=== PATIENT | female | born 1945 | race Caucasian/White ===

== ENCOUNTER 2018-10-19 08:22 | Outpatient (CLI) | payer SELFPAY, MEDICARE | END 2018-10-19 08:23 | disposition home or self-care (01) | LOC: LAB 08:22 ==

== ENCOUNTER 2018-10-24 10:38 | Outpatient (CLI) | payer SELFPAY | END 2018-10-24 10:39 | disposition home or self-care (01) | LOC: RAD 10:38 ==

== ENCOUNTER 2018-11-06 12:47 | Inpatient (IN) | payer MEDICARE, SELFPAY ==
[2018-11-06 14:09] VITALS: BMI 25.5
--- NOTE | 2018-11-06 16:33 | ED PDOC ---
Arrival/HPI - General Chief Complaint: Shortness Of Breath Time Seen by Provider: 11/06/18 15:26 Historian: Patient - History of Present Illness Narrative History of Present Illness (Text): 11/06/18 16:34 73 yo F w/ PMH of DM and high cholesterol complains of difficulty taking deep breathe, lower abdominal pain, low back pain and L hip pain radiating to the rest of the L leg x 3 days which started after taking cipro, states that she stopped taking cipro yesterday. States that she saw her pmd today regarding her symptoms and was advised to go to the ER for evaluation to have diagnostic tests done. Patient has a copy of a diagnostic order which includes CTA of chest, CT A/P, XR L spine, sacrum & coccyx, and US doppler of b/l LE. Otherwise: (-) nausea / vomiting, (-) diarrhea, (+) dysuria, (-) fever, (-) melena, (-) hemat ochezia. PMD Sofya Past Medical History - Infectious Disease Hx of Infectious Diseases: None - Endocrine/Metabolic Hx Diabetes Mellitus Type 2: Yes - Psychiatric Hx Substance Use: No - Surgical History Hx Cholecystectomy: Yes Family/Social History Family/Social History: No Known Family HX Smoking Status: Never Smoked Hx Alcohol Use: No Hx Substance Use: No Allergies/Home Meds Allergies/Adverse Reactions: Allergies aspirin Allergy (Verified 11/06/18 14:09) RASH Penicillins Allergy (Verified 11/06/18 14:09) RASH Home Medications: Home Meds Medication Instructions Recorded Confirmed Alendronate [Fosamax] 1 tab PO Q7D 11/06/18 11/06/18 GlipiZIDE [Glucotrol] 1 tab PO BID 11/06/18 11/06/18 Rosuvastatin Calcium [Crestor] 1 tab PO DAILY 11/06/18 11/06/18 Review of Systems - Review of Systems Constitutional: absent: Fatigue, Fevers Respiratory: absent: SOB, Cough Cardiovascular: absent: Chest Pain, Palpitations Gastrointestinal: Abdominal Pain. absent: Diarrhea, Nausea, Vomiting Genitourinary Female: absent: Dysuria, Frequency, Hematuria Musculoskeletal: Arthralgias, Back Pain. absent: Neck Pain Skin: absent: Rash, Skin Lesions Neurological: absent: Headache, Dizziness Physical Exam Vital Signs Temp Pulse Resp BP Pulse Ox 11/06/18 14:14 98.7 F 76 18 106/60 95 Temperature: Afebrile Blood Pressure: Normal Pulse: Regular Respiratory Rate: Normal Appearance: Positive for: Well-Appearing, Non-Toxic, Comfortable Pain Distress: None Mental Status: Positive for: Alert and Oriented X 3 - Systems Exam Head: Present: Atraumatic, Normocephalic Pupils: Present: PERRL Extroacular Muscles: Present: EOMI Conjunctiva: Present: Normal Mouth: Present: Moist Mucous Membranes Neck: Present: Normal Range of Motion Respiratory/Chest: Present: Clear to Auscultation, Good Air Exchange. No: Respiratory Distress, Accessory Muscle Use Cardiovascular: Present: Regular Rate and Rhythm, Normal S1, S2. No: Murmurs Abdomen: No: Tenderness, Distention, Peritoneal Signs Back: Present: Normal Inspection Upper Extremity: Present: Normal Inspection. No: Cyanosis, Edema Lower Extremity: Present: Normal Inspection, Tenderness (+mild tenderness to the L hip with limited ROM secondary to pain). No: Edema Neurological: Present: GCS=15, CN II-XII Intact, Speech Normal, Motor Func Grossly Intact, Normal Sensory Function Skin: Present: Warm, Dry, Normal Color. No: Rashes Psychiatric: Present: Alert, Oriented x 3, Normal Insight, Normal Concentration Medical Decision Making ED Course and Treatment: 11/06/18 16:29 Plan: -- Labs -- IV -- Urinalysis -- EKG -- CXR -- XR L spine -- XR sacrum & coccyx -- Reassess and disposition -- CT AP w/ po contrast -- CTA chest 11/06/18 18:16 Patient is refusing any analgesics at this time. EKG : SR at 89 bpm, no acute ST changes. US doppler b/l LE : no DVT. CXR : NAD, as read by PA XR L spine, sacrum & coccyx: no fracture, as read by PA XR L hip / pelvis: no fracture, no dislocation, as read by PA Labs reviewed : wbc nl, trop neg, bnp nl, UA +UTI. 11/06/18 21:15 CTA Chest with Intravenous Contrast for Pulmonary Embolism CLINICAL HISTORY: PAIN TECHNIQUE: Axial CTA images of the chest with intravenous contrast using a pulmonary embolism protocol. Reconstructed images were created and reviewed. 309.32 mGy-cm CONTRAST: With; VISIPAQUE 320 100ML was administered without incident. COMPARISON: None provided. FINDINGS: PULMONARY ARTERIES No evidence of central or segmental pulmonary embolism is seen. AORTA There is no evidence for aneurysm or dissection of the thoracic aorta. LUNGS Scattered bilateral groundglass opacities, nonspecific, may be due to an atypical infection versus inflammatory condition such as hypersensitivity pneumonitis. PLEURAL SPACES No pneumothorax evident. No pleural effusions. HEART Heart size is within normal limits. No significant pericardial effusion. LYMPH NODES No bulky lymphadenopathy is evident. Mild non-specific bilateral hilar adenopathy possibly reactive. BONES No focal osseous abnormality or acute fracture. IMPRESSION: Scattered bilateral groundglass opacities, nonspecific, may be due to an atypical infection versus inflammatory condition such as hypersensitivity pneumonitis. Mild non-specific bilateral hilar adenopathy possibly reactive. Unremarkable pulmonary embolism protocol CTA of the chest otherwise. 11/06/18 21:15 CT Abdomen and Pelvis without IV contrast CLINICAL HISTORY: PAIN TECHNIQUE: Axial computed tomography images of the abdomen and pelvis without intravenous contrast. CONTRAST: Without intravenous contrast. COMPARISON: None provided. FINDINGS: LUNG BASES: The lung bases appear clear. No pleural effusions are seen. LIVER: Unremarkable. GALLBLADDER AND BILE DUCTS: Status post cholecystectomy. No biliary ductal dilatation is evident. PANCREAS: Unremarkable. SPLEEN: Unremarkable. ADRENAL GLANDS: Unremarkable. KIDNEYS, URETERS, AND BLADDER: The kidneys appear within normal limits. There is no hydronephrosis or hydroureter. No urinary calculi are seen. STOMACH AND BOWEL: A small hiatal hernia is identified. Unremarkable appearance of the stomach. No evidence of bowel obstruction. The mucosal ramsey of the ileum are thickened measuring 3.4 mm transversely in the terminal portion. This is thought indicative of enteritis. Inflammatory or infectious etiologies are thought most likely. There is no definite evidence to suggest colitis. APPENDIX: No evidence of acute appendicitis on CT examination. PERITONEUM: No free fluid. No free air. LYMPH NODES: No lymphadenopathy is evident. REPRODUCTIVE: Unremarkable as visualized. VASCULATURE: No evidence of abdominal aortic aneurysm. Mild-moderate atherosclerotic vascular plaquing is present. BONES: No aggressive appearing osseous lesion. No acute osseous pathology evident. IMPRESSION: 1. Small hiatal hernia. 2. Ileitis; most pronounced in the terminal region. 3. Status post cholecystectomy. 4. Mild-moderate atherosclerotic vascular plaquing. Results d/w Dr. Cowart, request observation under the hospitalist service. On reevaluation, patient laying in bed comfortably. Reports no CP or SOB at this time. On exam, patient remains awake alert and oriented 3 in no acute distre ss. Diagnostic results d/w the patient. Patient states that she has a severe pcn allergy and develops rash, swelling and dyspnea when taking pcn. Doxycycline IV ordered. Case d/w medical office asst and Dr. Meyers, they agree with plan for observation under the hospitalist service. - RAD Interpretation Radiology Orders: 11/06/18 16:07 HIP MIN 2V W/ PELVIS LT [RAD] Stat LS SPINE WITH OBL > 18 YRS OLD [RAD] Stat 11/06/18 16:08 ABD & PELVIS PO CONTRAST ONLY [CT] Stat ANGIO CHEST PE PROTOCOL [CT] Stat SACRUM &/or COCCYX (MIN 2VW) [RAD] Stat DUPLEX LOWER EXTRM VEIN BILAT [US] Stat 11/06/18 16:17 CHEST ONE VIEW [RAD] Stat - PA / [employer] MANAGER / Resident Statement MD/DO has reviewed & agrees with the documentation as recorded. Disposition/Present on Arrival - Present on Arrival Any Indicators Present on Arrival: No History of DVT/PE: No History of Uncontrolled Diabetes: No Urinary Catheter: No History of Decub. Ulcer: No History Surgical Site Infection Following: None - Disposition Have Diagnosis and Disposition been Completed?: Yes Diagnosis: Pneumonitis, Ileitis, UTI (urinary tract infection) Disposition: HOSPITALIZED Disposition Time: 22:00 Patient Plan: Observation Condition: STABLE
[2018-11-06] MEDS ORDERED: Iohexol 240 (50 ml) ONE (17:09)
[2018-11-06] MEDS ORDERED: Iodixanol 320 MG/ML 100 ML BOTTLE IV ONE (17:10)
[2018-11-06 17:36] LABS: BASO # 0.04 K/mm3 (0.0-2.0); BASO % 0.5 % (0.0-3.0); EOS # 0.2 (0.0-0.7); EOS % 1.9 % (1.5-5.0); HEMOGLOBIN 12.9 g/dL (12.0-16.0); LYMPH # 2.2 (1.2-3.4); LYMPH % 26.4 % (22.0-35.0); MEAN CELL VOLUME 65.7 fl (80.0-105.0); MEAN CORPUSCULAR HEMOGLOBIN 21.4 pg (25.0-35.0); MEAN CORPUSCULAR HGB CONC 32.5 g/dl (31.0-37.0); MEAN PLATELET VOLUME 9.1 fl (7.0-11.0); MONO # 0.7 (0.1-0.6); MONO % 8.7 % (1.0-6.0); RBC 6.04 10^6/uL (3.5-6.1); RED CELL DISTRIBUTION WIDTH 15.7 % (11.5-14.5); WHITE BLOOD COUNT 8.2 10^3/uL (4.5-11.0)
[2018-11-06 17:57] LABS: ALB/GLOB RATIO 1.1 (1.1-1.8); ALBUMIN 4.3 g/dL (3.0-4.8); ALT/SGPT 39 U/L (7-56); AST/SGOT 26 U/L (14-36); BLOOD UREA NITROGEN 10 mg/dL (7-21); CALCIUM 9.1 mg/dL (8.4-10.5); GFR NON-AFRICAN AMERICAN > 60; LIPASE 225 U/L (23-300)
[2018-11-06 17:58] LABS: INR 1.01; PARTIAL THROMBOPLASTIN TIME 35.8 Seconds (26.9-38.3); PROTHROMBIN TIME 11.2 SECONDS (9.4-12.5); TROPONIN I < 0.01 ng/mL
--- NOTE | 2018-11-06 18:52 | RAD ---
Date of service: 11/06/2018 PROCEDURE: CHEST RADIOGRAPH, 1 VIEW HISTORY: back pain COMPARISON: None available. FINDINGS: LUNGS: Clear. PLEURA: No pneumothorax or pleural fluid seen. CARDIOVASCULAR: Atherosclerotic calcifications identified primarily aortic arch. No radiographic findings to suggest acute or significant cardiovascular disease. OSSEOUS STRUCTURES: No significant abnormalities. VISUALIZED UPPER ABDOMEN: Normal. OTHER FINDINGS: None. IMPRESSION: No active disease.
--- NOTE | 2018-11-06 20:14 | US ---
HISTORY: Leg pain and swelling. Evaluate for DVT PHYSICIAN(S): Ramy Ring MD. TECHNIQUE: Duplex sonography and color-flow Doppler with graded compression were used to evaluate the deep venous systems of both lower extremities. FINDINGS: The visualized deep venous systems of both lower extremities are sonographically normal and compressible. Normal wave forms and augmentation are seen. There is no sonographic evidence for deep venous thrombosis in the visualized segments of both lower extremities. IMPRESSION: No sonographic evidence for deep venous thrombosis in the visualized segments of both lower extremities.
[2018-11-06 20:41] LABS: PH,URINE 6.5 (4.7-8.0); URINE BILIRUBIN NEGATIVE (NEGATIVE); URINE BLOOD TRACE-LYSED (NEGATIVE); URINE GLUCOSE (UA) NEGATIVE (NEGATIVE); URINE LEUKOCYTE ESTERASE SMALL Leu/uL (NEGATIVE); URINE PROTEIN NEGATIVE mg/dL (<30 mg/dL); URINE UROBILINOGEN 0.2 E.U./dL (<1 E.U./dL)
[2018-11-06 20:42] LABS: URINE APPEARANCE CLEAR (CLEAR); URINE COLOR STRAW (YELLOW)
[2018-11-06] MEDS ORDERED: Dextrose 50% SYRINGE Inj (50 ml) IV PRN (23:29)
[2018-11-06] MEDS ORDERED: Albuterol-Ipratrop 3 mg / 0.5 (3 ml) UD IH PRN (23:30)
--- NOTE | 2018-11-07 00:11 | CP.PCM.HP ---
<Nikolay Conroy - Last Filed: 11/07/18 00:27> History of Present Illness - History of Present Illness History of Present Illness: Medicine History and Physical for Hospitalist Service, Dr. Mira Conroy, DO PGY-1 This is a 73 y o female with PMhx DM2, HLD, and hypertriglyceridemia, who presents to the ED c/o LLQ pain and shortness of breath associated with sharp chest pain that has been present for the past day. States that she was prescribed Cipro by her PMD for treatment of UTI, and also Diflucan x1 for treatment of yeast infection. Pt started taking both medications for 1 day, and then started to have the LLQ pain. Pt described it at being sharp, localized to LLQ with associated radiation of pain that shot down to L hip and rest of L leg. Pt states the shortness of breath also started at around the same time, and stated that it was difficult to take a deep breath in and that the chest pain was localized to the mid-sternum and also in the area of the ribs with radiation to the back. Pt states she got concerned about her symptoms, stopped taking Cipro on her own, and was sent to the ED by her PMD for further evaluation. Pt states that her symptoms have greatly improved since she stopped taking the Cipro. Admits to 2 episodes of watery diarrhea, non-bloody, most recent episode at 7 am on day of admission. Pt states she has been able to tolerate PO diet well since onset of symptoms, was able to eat oatmeal and eggs in the am without issues. States she has been drinking plenty of water. Denies headache, fever, chills, chest pain, sob, n/v/d/c, dysuria, urinary frequency, low back pain, suprapubic pain, foul smelling urine, abnormal vaginal discharge or other symptoms currently. PMhx: DM2, HLD, and hypertriglyceridemia PSurgHx: Cholecystectomy in 2006 Allergies: PCN, ASA (pt states she gets rash and facial flushing with both, questionable angioedema) Home meds: Glipizide 10 mg PO bid, Crestor 20 mg daily, Alendronate 70 mg PO q weekly Fam hx: significant for HTN and HLD Soc hx: denies smoking, EtOH or illicit drug use PMD: Dr. Cowart Present on Admission - Present on Admission Any Indicators Present on Admission: No History of DVT/PE: No History of Uncontrolled Diabetes: No Urinary Catheter: No Decubitus Ulcer Present: No Review of Systems - Constitutional Constitutional: absent: Chills, Fever, Headache, Night Sweats, Weakness - Respiratory Respiratory: Dyspnea. absent: Cough, Wheezing, Chest Congestion, Excessive Mucous Production - Genitourinary Genitourinary: absent: Change in Urinary Stream, Difficulty Urinating, Dysuria, Hematuria, Nocturia - Musculoskeletal Musculoskeletal: Arthralgias, Radiating Pain into Limb. absent: Numbness, Tingling Past Patient History - Infectious Disease Hx of Infectious Diseases: None - Past Social History Smoking Status: Never Smoked - CARDIAC Hx Hypercholesterolemia: Yes - ENDOCRINE/METABOLIC Hx Diabetes Mellitus Type 2: Yes - PSYCHIATRIC Hx Substance Use: No - SURGICAL HISTORY Hx Cholecystectomy: Yes Meds Allergies/Adverse Reactions: Allergies Allergy/AdvReac Type Severity Reaction Status Date / Time aspirin Allergy RASH Verified 11/06/18 14:09 Penicillins Allergy RASH Verified 11/06/18 14:09 Physical Exam - Constitutional Appears: Non-toxic, No Acute Distress - Head Exam Head Exam: ATRAUMATIC, NORMOCEPHALIC - Eye Exam Eye Exam: EOMI, Normal appearance, PERRL - ENT Exam ENT Exam: Mucous Membranes Moist - Neck Exam Neck exam: Positive for: Full Rom, Normal Inspection. Negative for: Tenderness - Respiratory Exam Respiratory Exam: Clear to Auscultation Bilateral, NORMAL BREATHING PATTERN. absent: Rales, Rhonchi, Wheezes - Cardiovascular Exam Cardiovascular Exam: REGULAR RHYTHM, +S1, +S2. absent: Gallop, Rubs, Systolic Murmur - GI/Abdominal Exam GI & Abdominal Exam: Normal Bowel Sounds, Soft, Tenderness. absent: Distended, Guarding, Organomegaly, Rigid Additional comments: Pinpoint tenderness to palpation in LLQ without rebound tenderness or radiation to rest of abd - Extremities Exam Extremities exam: Positive for: full ROM, normal capillary refill, normal inspection, pedal pulses present. Negative for: calf tenderness, joint swelling, pedal edema, tenderness - Neurological Exam Neurological exam: Alert, CN II-XII Intact, Oriented x3, Reflexes Normal - Skin Skin Exam: Dry, Intact, Normal Color, Warm Results - Vital Signs Recent Vital Signs: Last Vital Signs Temp 98.7 F 11/06/18 14:14 Pulse 80 11/07/18 00:07 Resp 18 11/07/18 00:07 BP 150/74 11/07/18 00:07 Pulse Ox 98 11/07/18 00:07 - Labs Result Diagrams: 11/06/18 17:32 11/06/18 17:32 Labs: Laboratory Results - last 24 hr 11/06/18 11/06/18 11/06/18 17:32 17:32 17:32 WBC 8.2 D RBC 6.04 Hgb 12.9 Hct 39.7 MCV 65.7 L MCH 21.4 L MCHC 32.5 RDW 15.7 H Plt Count 305 MPV 9.1 Neut % (Auto) 62.5 Lymph % (Auto) 26.4 [place] % (Auto) 8.7 H Eos % (Auto) 1.9 Baso % (Auto) 0.5 Lymph # (Auto) 2.2 [place] # (Auto) 0.7 H Eos # (Auto) 0.2 Baso # (Auto) 0.04 Absolute Neuts (auto) 5.14 PT 11.2 INR 1.01 APTT 35.8 D-Dimer, Quantitative 324 H Sodium 138 Potassium 4.2 Chloride 104 Carbon Dioxide 23 Anion Gap 15 BUN 10 Creatinine 0.4 L Est GFR ( Amer) > 60 Est GFR (Non-Af Amer) > 60 Random Glucose 142 H Calcium 9.1 Total Bilirubin 0.4 AST 26 ALT 39 Alkaline Phosphatase 80 Troponin I < 0.01 NT-Pro-B Natriuret Pep 40.0 Total Protein 8.3 Albumin 4.3 Globulin 4.0 Albumin/Globulin Ratio 1.1 Lipase 225 Urine Color Urine Appearance Urine pH Ur Specific [place] Urine Protein Urine Glucose (UA) Urine Ketones Urine Blood Urine Nitrate Urine Bilirubin Urine Urobilinogen Ur Leukocyte Esterase Urine RBC Urine WBC Ur Epithelial Cells 11/06/18 20:34 WBC RBC Hgb Hct MCV MCH MCHC RDW Plt Count MPV Neut % (Auto) Lymph % (Auto) [place] % (Auto) Eos % (Auto) Baso % (Auto) Lymph # (Auto) [place] # (Auto) Eos # (Auto) Baso # (Auto) Absolute Neuts (auto) PT INR APTT D-Dimer, Quantitative Sodium Potassium Chloride Carbon Dioxide Anion Gap BUN Creatinine Est GFR ( Amer) Est GFR (Non-Af Amer) Random Glucose Calcium Total Bilirubin AST ALT Alkaline Phosphatase Troponin I NT-Pro-B Natriuret Pep Total Protein Albumin Globulin Albumin/Globulin Ratio Lipase Urine Color Straw Urine Appearance Clear Urine pH 6.5 Ur Specific [place] <= 1.005 Urine Protein Negative Urine Glucose (UA) Negative Urine Ketones Negative Urine Blood Trace-lysed H Urine Nitrate Negative Urine Bilirubin Negative Urine Urobilinogen 0.2 Ur Leukocyte Esterase Small H Urine RBC 5 - 10 H Urine WBC 10 - 15 H Ur Epithelial Cells 6 - 8 H Assessment & Plan - Assessment and Plan (Free Text) Assessment: 73 y o female with PMhx DM2, HLD, and hypertriglyceridemia, who presents to the ED c/o LLQ pain and shortness of breath associated with sharp chest pain that has been present for the past day. Plan: UTI Failure of outpatient tx with Cipro, possible adverse reaction to medication, improved symptoms s/p pt d/c-ing medication Hx PCN allergy S/p Doxycycline x1 in ED No leukocytosis on admission Procal pending U/a on admission: trace blood, small LE, RBCs 5-10, WBCs 10-15 Urine and blood cxs pending ID consulted (Dr. Joiner), recs appreciated Afebrile, vitals stablle, cont to monitor BUN/Cr wnl Shortness of breath Symptoms much improved as per pt s/p d/c-ing Cipro LE doppler U/s neg for DVT CTA neg for PE, VRAD read demonstrates scattered b/l ground-glass opacities, non-specific, may be 2/2 atypical infection vs. inflammatory condition such as hypersensitivity pneumonitis. Mild non-specific b/l hilar adenopathy possibly reactive. Unremarkable otherwise. Duonebs q6h prn S/p Doxycycline x1 in ED BNP wnl D-dimer elevated at 324 Diarrhea Pt reports no further episodes of diarrhea for past [address] abd/pelvis: small hiatal hernia, ileitis most pronounced in terminal region, s/p cholecystectomy, mild-mod atherosclerotic vascular plaquing C diff toxin and Ag pending Stool cx, ova + parasites pending Start Flagyl 500 mg IVPB q8h ID consulted, recs appreciated Cont to monitor bowel function HHD/mod consistent carb Encourage PO hydration L hip/L leg pain Possibly 2/2 adverse reaction to Cipro, sxs improved since d/c-ing anbx XR L-spine, sacrum, coccyx, L hip/pelvis neg for fx/dislocation PT eval ordered Activity: OOB as tolerated Hx DM2 Home med Glipizide held on admission ISS-med Fingersticks achs Hypoglycemic protocol Hx HLD/HTGs C/w home med Crestor PO din DVT/GI ppx: Lovenox/Pepcid Pt seen, examined with, and plan discussed with Dr. Meyers, attending physician. Nikolay Conroy DO PGY-1, [employer] Operator Pager #[phone] <Vee Meyers - Last Filed: 11/10/18 21:04> Results - Vital Signs Recent Vital Signs: Last Vital Signs Temp 98.2 F 11/09/18 14:00 Pulse 91 H 11/09/18 14:00 Resp 18 11/09/18 14:00 BP 142/71 11/09/18 14:00 Pulse Ox 96 11/09/18 14:00 - Labs Result Diagrams: 11/09/18 06:20 11/09/18 06:20 Attending/Attestation - Attestation I have personally seen and examined this patient.: Yes I have fully participated in the care of the patient.: Yes I have reviewed all pertinent clinical information: Yes
[2018-11-07] MEDS: metroNIDAZOLE IV 500 mg/100 ml 500 MG/100 ML BAG IVPB SCH ×4 (01:27→23:34)
[2018-11-07 07:09] LABS: BASO # 0.02 K/mm3 (0.0-2.0); BASO % 0.3 % (0.0-3.0); EOS # 0.2 (0.0-0.7); EOS % 3.1 % (1.5-5.0); HEMOGLOBIN 12.3 g/dL (12.0-16.0); LYMPH # 2.1 (1.2-3.4); LYMPH % 30.2 % (22.0-35.0); MEAN CELL VOLUME 65.4 fl (80.0-105.0); MEAN PLATELET VOLUME 9.7 fl (7.0-11.0); MONO # 0.7 (0.1-0.6); MONO % 10.7 % (1.0-6.0); RBC 5.87 10^6/uL (3.5-6.1); RED CELL DISTRIBUTION WIDTH 15.7 % (11.5-14.5); WHITE BLOOD COUNT 6.8 10^3/uL (4.5-11.0)
[2018-11-07] MEDS: Insulin Lispro (humaLOG) MEDIUM Coverage SC SCH ×4 (07:30→22:00)
[2018-11-07 07:41] LABS: ALB/GLOB RATIO 1.1 (1.1-1.8); ALBUMIN 3.9 g/dL (3.0-4.8); ALT/SGPT 42 U/L (7-56); AST/SGOT 35 U/L (14-36); BLOOD UREA NITROGEN 12 mg/dL (7-21); CALCIUM 8.3 mg/dL (8.4-10.5); GFR NON-AFRICAN AMERICAN > 60
--- NOTE | 2018-11-07 07:57 | CT ---
Date of service: 11/06/2018 PROCEDURE: CT Abdomen and Pelvis without intravenous contrast HISTORY: lower abd pain COMPARISON: None. TECHNIQUE: Technique. Contrast dose: Radiation dose: Total exam DLP = 292.22 mGy-cm. This CT exam was performed using one or more of the following dose reduction techniques: Automated exposure control, adjustment of the mA and/or kV according to patient size, and/or use of iterative reconstruction technique. FINDINGS: LOWER THORAX: Small hiatal hernia. LIVER: Unremarkable. No gross lesion or ductal dilatation. GALLBLADDER AND BILE DUCTS: Cholecystectomy. PANCREAS: Unremarkable. No gross lesion or ductal dilatation. SPLEEN: Unremarkable. ADRENALS: Unremarkable. No mass. KIDNEYS AND URETERS: Unremarkable. No hydronephrosis. No solid mass. VASCULATURE: Unremarkable. No aortic aneurysm. No aortic atherosclerotic calcification or mural plaque present. BOWEL: Unremarkable. No obstruction. No gross mural thickening. APPENDIX: Unremarkable. Normal appendix. PERITONEUM: Unremarkable. No free fluid. No free air. LYMPH NODES: Unremarkable. No enlarged lymph nodes. BLADDER: Unremarkable. REPRODUCTIVE: Unremarkable. BONES: No acute fracture. OTHER FINDINGS: None. IMPRESSION: Small hiatal hernia. Status post cholecystectomy.
--- NOTE | 2018-11-07 08:25 | CT ---
Date of service: 11/06/2018 PROCEDURE: CT Chest with contrast (Pulmonary Angiogram) HISTORY: back pain, dyspnea, r/o PE COMPARISON: None available. TECHNIQUE: Axial computed tomography images were obtained of the chest in the pulmonary arterial phase of enhancement. Coronal and sagittal reformatted images were created and reviewed. Intravenous contrast dose: Radiation dose: Total exam DLP = 309.32 mGy-cm. This CT exam was performed using one or more of the following dose reduction techniques: Automated exposure control, adjustment of the mA and/or kV according to patient size, and/or use of iterative reconstruction technique. FINDINGS: PULMONARY ARTERIES: Unremarkable. No pulmonary embolism. AORTA: No acute findings. No thoracic aortic aneurysm. No aortic atherosclerotic calcification or mural plaque present. LUNGS: Mild bilateral mosaic pattern to the lung parenchyma suggesting an element of air trapping. PLEURAL SPACES: Unremarkable. No effusion or pneumothorax. HEART: Unremarkable. No cardiomegaly. No significant pericardial effusion. LYMPH NODES: No lymphadenopathy. BONES, CHEST WALL: Unremarkable. No fracture or destructive lesion OTHER FINDINGS: Unremarkable. IMPRESSION: No evidence of pulmonary embolus.
[2018-11-07] MEDS: Vancomycin 1gm in NS 250ml 1 GM/250 ML BAG IVPB SCH ×2 (11:09→23:33)
[2018-11-07] MEDS: Enoxaparin 40 mg Syringe SC SCH (11:12)
--- NOTE | 2018-11-07 12:39 | CARD ---
APPROVED REPORT Date of service: 11/06/2018 EKG Measurement Heart [id number] <Conclusion> Sinus rhythm Left anterior fascicular block
[2018-11-07 12:53] LABS: TROPONIN I < 0.01 ng/mL
--- NOTE | 2018-11-07 12:54 | CARD ---
APPROVED REPORT Date of service: 11/07/2018 EKG Measurement Heart [id number] ID [id number] <Conclusion> Normal sinus rhythm Normal ECG
--- NOTE | 2018-11-07 14:02 | CP.PCM.CON ---
History of Present Illness - History of Present Illness History of Present Illness: 73 year old female with PMH of DM, HTN, hypertriglyceridemia, came in to [facility] – [place] complaining of left lower quadrant pain for the past day after she was started on Ciprofloxacin as an outpatient. She went to her PMD and was complaining of ur inary frequency but no dysuria or hematuria, denies fever or chills, no nausea or vomiting, no headache or dizziness, no chest pain, occasional SOB, no rhinorrhea, no cough currently, no diarrhea. The patient also denies having flank pain. Urinalysis is showing pyuria and Infectious Diseases consult is requested to further evaluate and manage. Review of Systems - Review of Systems All systems: reviewed and no additional remarkable complaints except (as per HPI) Past Patient History - Infectious Disease Hx of Infectious Diseases: None - Past Social History Smoking Status: Never Smoked - CARDIAC Hx Hypercholesterolemia: Yes - PULMONARY Hx Respiratory Disorders: No - NEUROLOGICAL Hx Neurological Disorder: No - HEENT Hx HEENT Problems: No - RENAL Hx Chronic Kidney Disease: No - ENDOCRINE/METABOLIC Hx Diabetes Mellitus Type 2: Yes - HEMATOLOGICAL/ONCOLOGICAL Hx Blood Disorders: No - INTEGUMENTARY Hx Dermatological Problems: No - MUSCULOSKELETAL/RHEUMATOLOGICAL Hx Falls: No - GASTROINTESTINAL Hx Gall Bladder Disease: Yes (removed in 2006 per patient) - GENITOURINARY/GYNECOLOGICAL Hx Genitourinary Disorders: No - PSYCHIATRIC Hx Psychophysiologic Disorder: No Hx Substance Use: No - SURGICAL HISTORY Hx Cholecystectomy: Yes Meds Allergies/Adverse Reactions: Allergies Allergy/AdvReac Type Severity Reaction Status Date / Time aspirin Allergy RASH Verified 11/06/18 14:09 Penicillins Allergy RASH Verified 11/06/18 14:09 - Medications Medications: Current Medications Acetaminophen (Tylenol 325mg Tab) 650 mg PO Q6H PRN PRN Reason: Pain, moderate (4-7) Albuterol/Ipratropium (Duoneb 3 Mg/0.5 Mg (3 Ml) Ud) 3 ml IH Q6H PRN PRN Reason: Shortness of Breath Atorvastatin Calcium (Lipitor) 80 mg PO DIN SADA Dextrose (Dextrose 50% Inj) 0 ml IV STAT PRN; Protocol PRN Reason: Hypoglycemia Protocol Diphenhydramine HCl (Benadryl) 25 mg PO Q6H PRN PRN Reason: Allergy symptoms Enoxaparin Sodium (Lovenox) 40 mg SC DAILY SADA; Protocol Famotidine (Pepcid) 20 mg PO BID [facility] Dextrose (Dextrose 5% In Water 1000 Ml) 1,000 mls @ 0 mls/hr IV .Q0M PRN; Protocol PRN Reason: Hypoglycemia Protocol Metronidazole (Flagyl) 500 mg in 100 mls @ 100 mls/hr IVPB Q8 SADA; Protocol Last Admin: 11/07/18 06:06 Dose: 100 mls/hr Vancomycin HCl (Vancomycin 1gm) 1 gm in 250 mls @ 167 mls/hr IVPB Q12H SADA; Protocol Insulin Human Lispro (Humalog Med) 0 units SC ACHS SADA; Protocol Physical Exam - Constitutional Appears: Non-toxic, No Acute Distress, Chronically Ill - Head Exam Head Exam: NORMAL INSPECTION - ENT Exam ENT Exam: Mucous Membranes Moist - Neck Exam Neck exam: Negative for: Lymphadenopathy, Meningismus - Respiratory Exam Respiratory Exam: Decreased Breath Sounds. absent: Rales - Cardiovascular Exam Cardiovascular Exam: +S1, +S2 - GI/Abdominal Exam GI & Abdominal Exam: Soft. absent: Tenderness Results - Vital Signs Recent Vital Signs: Last Vital Signs Temp 98 F 11/07/18 08:33 Pulse 76 11/07/18 08:33 Resp 19 11/07/18 08:33 BP 130/65 11/07/18 08:33 Pulse Ox 97 11/07/18 08:33 - Labs Result Diagrams: 11/07/18 06:45 11/07/18 06:45 Labs: Laboratory Results - last 24 hr 11/06/18 11/06/18 11/06/18 17:32 17:32 17:32 WBC 8.2 D RBC 6.04 Hgb 12.9 Hct 39.7 MCV 65.7 L MCH 21.4 L MCHC 32.5 RDW 15.7 H Plt Count 305 MPV 9.1 Neut % (Auto) 62.5 Lymph % (Auto) 26.4 Bledsoe % (Auto) 8.7 H Eos % (Auto) 1.9 Baso % (Auto) 0.5 Lymph # (Auto) 2.2 Bledsoe # (Auto) 0.7 H Eos # (Auto) 0.2 Baso # (Auto) 0.04 Absolute Neuts (auto) 5.14 PT 11.2 INR 1.01 APTT 35.8 D-Dimer, Quantitative 324 H Sodium 138 Potassium 4.2 Chloride 104 Carbon Dioxide 23 Anion Gap 15 BUN 10 Creatinine 0.4 L Est GFR ( Amer) > 60 Est GFR (Non-Af Amer) > 60 POC Glucose (mg/dL) Random Glucose 142 H Calcium 9.1 Total Bilirubin 0.4 AST 26 ALT 39 Alkaline Phosphatase 80 Troponin I < 0.01 NT-Pro-B Natriuret Pep 40.0 Total Protein 8.3 Albumin 4.3 Globulin 4.0 Albumin/Globulin Ratio 1.1 Lipase 225 Urine Color Urine Appearance Urine pH Ur Specific Monroe Urine Protein Urine Glucose (UA) Urine Ketones Urine Blood Urine Nitrate Urine Bilirubin Urine Urobilinogen Ur Leukocyte Esterase Urine RBC Urine WBC Ur Epithelial Cells 11/06/18 11/07/18 11/07/18 20:34 00:33 02:30 WBC RBC Hgb Hct MCV MCH MCHC RDW Plt Count MPV Neut % (Auto) Lymph % (Auto) Bledsoe % (Auto) Eos % (Auto) Baso % (Auto) Lymph # (Auto) Bledsoe # (Auto) Eos # (Auto) Baso # (Auto) Absolute Neuts (auto) PT INR APTT D-Dimer, Quantitative Sodium Potassium Chloride Carbon Dioxide Anion Gap BUN Creatinine Est GFR ( Amer) Est GFR (Non-Af Amer) POC Glucose (mg/dL) 272 H 289 H Random Glucose Calcium Total Bilirubin AST ALT Alkaline Phosphatase Troponin I NT-Pro-B Natriuret Pep Total Protein Albumin Globulin Albumin/Globulin Ratio Lipase Urine Color Straw Urine Appearance Clear Urine pH 6.5 Ur Specific Monroe <= 1.005 Urine Protein Negative Urine Glucose (UA) Negative Urine Ketones Negative Urine Blood Trace-lysed H Urine Nitrate Negative Urine Bilirubin Negative Urine Urobilinogen 0.2 Ur Leukocyte Esterase Small H Urine RBC 5 - 10 H Urine WBC 10 - 15 H Ur Epithelial Cells 6 - 8 H 11/07/18 11/07/18 11/07/18 06:31 06:45 06:45 WBC 6.8 RBC 5.87 Hgb 12.3 Hct 38.4 MCV 65.4 L MCH 21.0 L MCHC 32.0 RDW 15.7 H Plt Count 301 MPV 9.7 Neut % (Auto) 55.7 Lymph % (Auto) 30.2 Bledsoe % (Auto) 10.7 H Eos % (Auto) 3.1 Baso % (Auto) 0.3 Lymph # (Auto) 2.1 Bledsoe # (Auto) 0.7 H Eos # (Auto) 0.2 Baso # (Auto) 0.02 Absolute Neuts (auto) 3.79 PT INR APTT D-Dimer, Quantitative Sodium 136 Potassium 4.1 Chloride 104 Carbon Dioxide 24 Anion Gap 12 BUN 12 Creatinine 0.4 L Est GFR ( Amer) > 60 Est GFR (Non-Af Amer) > 60 POC Glucose (mg/dL) 203 H Random Glucose 187 H Calcium 8.3 L Total Bilirubin 0.3 AST 35 ALT 42 Alkaline Phosphatase 77 Troponin I NT-Pro-B Natriuret Pep Total Protein 7.5 Albumin 3.9 Globulin 3.5 Albumin/Globulin Ratio 1.1 Lipase Urine Color Urine Appearance Urine pH Ur Specific Monroe Urine Protein Urine Glucose (UA) Urine Ketones Urine Blood Urine Nitrate Urine Bilirubin Urine Urobilinogen Ur Leukocyte Esterase Urine RBC Urine WBC Ur Epithelial Cells Assessment & Plan - Assessment and Plan (Free Text) Plan: Assessment consider urinary tract infection DM HTN hypertriglyceridemia Plan Started Vancomycin, Azactam and Flagyl and will follow up blood and urine cx reviewed CT C/A/P which did not show specific acute pathology will monitor clinically
--- NOTE | 2018-11-07 16:20 | RAD ---
Date of service: 11/06/2018 PROCEDURE: LEFT HIP WITH PELVIS RADIOGRAPHS HISTORY: pain COMPARISON: None available. TECHNIQUE: Frontal views of the pelvis and left hip joint of been submitted with frog-leg lateral view left hip. FINDINGS: Pelvic ring is intact including pubic symphysis. Retained oral contrast within bowel obscures right sacrum and right iliac bone. No gross fracture or dislocation is appreciated throughout the pelvic ring including left hip joint. Degenerative sclerosis appreciate the weight-bearing portion of the bilateral sacroiliac joints with joint space narrowing compatible with moderate degenerative joint disease. Lesser degenerative changes seen the bilateral sacroiliac joints. IMPRESSION: No acute fracture dislocation left hip joint with pelvic ring intact grossly. Degenerative changes are seen at the bilateral sacroiliac and hip joints symmetrically.
--- NOTE | 2018-11-07 16:22 | RAD ---
Date of service: 11/06/2018 PROCEDURE: Radiographs of the Lumbar Spine. HISTORY: low back pain COMPARISON: No prior. FINDINGS: BONES: Normal lumbar curvature. No fracture or spondylolisthesis identified. No suspicious lytic or blastic change or other destructive bony process appreciable. Multilevel spondylosis appears moderate severity, diffuse. Diffuse multilevel facet joint degenerative changes present. No spondylolysis identified throughout. DISC SPACES: Unremarkable. OTHER FINDINGS: None. IMPRESSION: Multilevel degenerative disease appears moderate severity as well as multilevel facet arthropathy. No fracture or spondylolisthesis appreciable. Further characterization by MRI or CT is available if clinically warranted.
--- NOTE | 2018-11-07 16:23 | RAD ---
Date of service: 11/06/2018 PROCEDURE: Radiographs of the Sacrum and Coccyx HISTORY: pain COMPARISON: None available. TECHNIQUE: Frontal and lateral views of the sacrum and coccyx FINDINGS: BONES: No definitive fractures appreciable the lateral projection of the sacrum and coccyx. Frontal projections of the sacrum and coccyx are obscured by overlying retained oral contrast material throughout small and large bowel loops unfortunately. SACROILIAC JOINTS: Mild degenerative changes seen the bilateral sacroiliac joints. No distraction appreciated. OTHER FINDINGS: None. IMPRESSION: No definitive fracture or destructive bony lesion involving the sacrum and coccyx however oral contrast material within bowel loops obscure evaluation in the frontal projection as discussed above. Degenerative changes are seen symmetrically at the bilateral sacroiliac joints, mild in severity.
[2018-11-07] MEDS: Aztreonam 1 Gm in NS 100mL 100 ML IVPB SCH ×2 (17:14→23:55)
[2018-11-07 17:33] LABS: TROPONIN I < 0.01 ng/mL
[2018-11-07] MEDS: DiphenhydrAMINE 12.5 mg/5 ml LIQ UD (5 ml) PO PRN (23:55)
[2018-11-08] MEDS: metroNIDAZOLE IV 500 mg/100 ml 500 MG/100 ML BAG IVPB SCH ×2 (05:55→14:02)
[2018-11-08 07:05] LABS: BASO # 0.03 K/mm3 (0.0-2.0); BASO % 0.5 % (0.0-3.0); EOS # 0.2 (0.0-0.7); EOS % 3.7 % (1.5-5.0); HEMOGLOBIN 11.7 g/dL (12.0-16.0); LYMPH # 2.2 (1.2-3.4); MEAN CELL VOLUME 65.7 fl (80.0-105.0); MEAN PLATELET VOLUME 9.1 fl (7.0-11.0); MONO # 0.4 (0.1-0.6); MONO % 7.1 % (1.0-6.0); RBC 5.57 10^6/uL (3.5-6.1); RED CELL DISTRIBUTION WIDTH 15.5 % (11.5-14.5); WHITE BLOOD COUNT 6.2 10^3/uL (4.5-11.0)
[2018-11-08 07:28] LABS: ALB/GLOB RATIO 1.1 (1.1-1.8); ALBUMIN 3.7 g/dL (3.0-4.8); ALT/SGPT 34 U/L (7-56); AST/SGOT 28 U/L (14-36); BLOOD UREA NITROGEN 9 mg/dL (7-21); CALCIUM 8.2 mg/dL (8.4-10.5); GFR NON-AFRICAN AMERICAN > 60
[2018-11-08] MEDS: Aztreonam 1 Gm in NS 100mL 100 ML IVPB SCH ×3 (07:28→22:07)
[2018-11-08] MEDS: Insulin Lispro (humaLOG) MEDIUM Coverage SC SCH ×4 (08:17→22:07)
[2018-11-08] MEDS: Enoxaparin 40 mg Syringe SC SCH (10:52)
[2018-11-08] MEDS: Vancomycin 1gm in NS 250ml 1 GM/250 ML BAG IVPB SCH ×2 (10:53→22:54)
--- NOTE | 2018-11-08 13:40 | CP.PCM.PN ---
<Enzo Whalen - Last Filed: 11/08/18 14:19> Subjective - Date & Time of Evaluation Date of Evaluation: 11/08/18 Time of Evaluation: 06:15 - Subjective Subjective: Pt seen and examined this morning at bedside. Per nursing, pt tolerating IV antibiotics well, Objective - Vital Signs/Intake and Output Vital Signs (last 24 hours): Temp Pulse Resp BP Pulse Ox 98 F 70 18 137/74 97 11/08/18 06:00 11/08/18 06:00 11/08/18 06:00 11/08/18 06:00 11/08/18 06:00 Intake and Output: 11/08/18 11/08/18 06:59 18:59 Intake Total 660 Balance 660 - Medications Medications: Current Medications Acetaminophen (Tylenol 325mg Tab) 650 mg PO Q6H PRN PRN Reason: Pain, moderate (4-7) Albuterol/Ipratropium (Duoneb 3 Mg/0.5 Mg (3 Ml) Ud) 3 ml IH Q6H PRN PRN Reason: Shortness of Breath Atorvastatin Calcium (Lipitor) 80 mg PO DIN SADA Last Admin: 11/07/18 17:19 Dose: Not Given Dextrose (Dextrose 50% Inj) 0 ml IV STAT PRN; Protocol PRN Reason: Hypoglycemia Protocol Diphenhydramine HCl (Benadryl) 25 mg PO Q6H PRN PRN Reason: Allergy symptoms Last Admin: 11/07/18 23:55 Dose: 25 mg Enoxaparin Sodium (Lovenox) 40 mg SC DAILY SADA; Protocol Last Admin: 11/08/18 10:52 Dose: 40 mg Famotidine (Pepcid) 20 mg PO BID SADA Last Admin: 11/08/18 10:52 Dose: 20 mg Dextrose (Dextrose 5% In Water 1000 Ml) 1,000 mls @ 0 mls/hr IV .Q0M PRN; Protocol PRN Reason: Hypoglycemia Protocol Metronidazole (Flagyl) 500 mg in 100 mls @ 100 mls/hr IVPB Q8 SADA; Protocol Last Admin: 11/08/18 05:55 Dose: 100 mls/hr Vancomycin HCl (Vancomycin 1gm) 1 gm in 250 mls @ 167 mls/hr IVPB Q12H SADA; Protocol Last Admin: 11/08/18 10:53 Dose: 167 mls/hr Aztreonam (Azactam 1 Gm) 100 mls @ 100 mls/hr IVPB Q8 SADA; Protocol Stop: 11/14/18 14:01 Last Admin: 11/08/18 07:28 Dose: 100 mls/hr Insulin Human Lispro (Humalog Med) 0 units SC ACHS SADA; Protocol Last Admin: 11/08/18 11:18 Dose: 5 units - Labs Labs: 11/08/18 06:30 11/08/18 06:30 PT 11.2 SECONDS (9.4-12.5) 11/06/18 17:32 INR 1.01 11/06/18 17:32 APTT 35.8 Seconds (26.9-38.3) 11/06/18 17:32 - Constitutional Appears: No Acute Distress - Head Exam Head Exam: ATRAUMATIC, NORMOCEPHALIC - Eye Exam Eye Exam: EOMI - ENT Exam ENT Exam: Mucous Membranes Moist - Neck Exam Neck Exam: Full ROM - Respiratory Exam Respiratory Exam: Clear to Ausculation Bilateral, NORMAL BREATHING PATTERN. absent: Accessory Muscle Use, Respiratory Distress - Cardiovascular Exam Cardiovascular Exam: RRR, +S1, +S2. absent: Diastolic murmur, Murmur - GI/Abdominal Exam GI & Abdominal Exam: Soft, Tenderness, Normal Bowel Sounds - Extremities Exam Extremities Exam: Full ROM. absent: Calf Tenderness, Pedal Edema, Tenderness - Neurological Exam Neurological Exam: Alert, Awake, Oriented x3 - Psychiatric Exam Psychiatric exam: Normal Affect, Normal Mood - Skin Skin Exam: Dry, Normal Color, Warm Assessment and Plan - Assessment and Plan (Free Text) Assessment: Pt is a 73 yo female with PMH DM2, HLD, and hypertriglyceridemia, who presents to the ED complaining of LLQ pain and SOB associated with sharp chest pain. Plan: UTI - Failure of outpatient tx with Cipro, possible adverse reaction to medication - Hx PCN allergy - Procal 0.15 - Urine cultures GPC - Blood cultures NGTD - ID consulted, vanc, azactam, and flagyl Diarrhea - C diff NEGATIVE - Stool culture pending - Ova + parasites pending Shortness of breath - LE doppler NEGATIVE for DVT - CTA neg for PE - Duonebs q6h prn Left hip and leg pain - Xray for Lumbar spine, sacrum, coccyx, Left hip/pelvis NEGATIVE for fracture or dislocation DM2 - Glipizide held on admission - ISS - Fingersticks ACHS HLD - Crestor Ppx - Lovenox - Pepcid Pt seen, examined, assessment and plan discussed with Dr Deanna Whalen PGY1, Internal Medicine Resident <Deanna Cruz R - Last Filed: 11/10/18 07:29> Objective - Vital Signs/Intake and Output Vital Signs (last 24 hours): Temp Pulse Resp BP Pulse Ox 98.2 F 91 H 18 142/71 96 11/09/18 14:00 11/09/18 14:00 11/09/18 14:00 11/09/18 14:00 11/09/18 14:00 - Labs Labs: 11/09/18 06:20 11/09/18 06:20 PT 11.2 SECONDS (9.4-12.5) 11/06/18 17:32 INR 1.01 11/06/18 17:32 APTT 35.8 Seconds (26.9-38.3) 11/06/18 17:32 Attending/Attestation - Attestation I have personally seen and examined this patient.: Yes I have fully participated in the care of the patient.: Yes I have reviewed all pertinent clinical information, including history, physical exam and plan: Yes Notes (Text): Patient seen and examined by me with resident at 10 AM in 11/08/18. Case including HPI, physical exam, and assessment and plan discussed with resident. Agree with above with following additions/corrections. Patient is a 73-year-old female past medical history significant for type 2 diabetes, hyperlipidemia, and hypertriglyceridemia that presented to the emergency room with left lower quadrant pain with associated shortness of breath and chest pain. Patient states she is feeling much better. Chest pain resolved. Shortness of breath resolved. LLQ abdominal pain improved. No dysuria or burning with urination. No fevers or chills. No nausea or vomiting. No palpitations. No diarrhea or constipation. Physical exam: General: Awake and alert sitting up in bed in no acute distress HEENT: Normocephalic, atraumatic. Extraocular muscles intact, pupils equal and reactive, no scleral icterus. Oropharynx is pink and moist. No pharyngeal erythema or exudate apreciated. Neck is supple. Cardiovascular: Regular rhythm. Normal S1 and S2. No murmurs, rubs, or gallops appreciated Pulmonary: Normal respiratory effort. No rhonchi, rales, or wheezing appreciated. Gastrointestinal: Soft, nondistended. Mild LLQ abdominal pain. Positive bowel sounds all 4 quadrants. No guarding. Musculoskeletal: Moves all extremities. No calf tenderness. No edema appreciated. Central nervous system: AAOx3, CN 2-12 grossly intact. Dermatologic: Skin warm and dry. Assessment and plan: Patient is a 73-year-old female past medical history significant for type 2 diabetes, hyperlipidemia, and hypertriglyceridemia that presented to the emergency room with left lower quadrant pain with associated shortness of breath and chest pain. 1. LLQ abdominal pain. Left hip and leg pain. Much improved. CT abdomen and pelvis showed small hiatal hernia, status post cholecystectomy. Left hip and pe lvic x-ray per radiologist showed no acute fracture or dislocation of left hip joint with pelvic ring intact grossly, degenerative changes are seen at the bilateral sacroiliac and hip joints symmetrically. Lumbar x-ray per radiologist showed multilevel degenerative disease appears moderate severity as well as multilevel facet arthropathy, no fracture or spondylolisthesis appreciable. Sacrum and coccyx x-ray per radiologist showed no definitive fracture or destructive bony lesion involving the sacrum and coccyx, degenerative changes are seen symmetrically at the bilateral sacroiliac joints and is mild in severity. Bilateral lower extremity venous Dopplers are negative for DVT. Patient was able to ambulate with physical therapy. 2. UTI. Continue Vancomycin and Azactam as per ID.. Pending urine culture 3. Shortness of breath. Resolved. D-dimer was elevated at 324. CTA chest per radiologist showed no evidence of pulmonary embolism. Continue nebulizer treatments as needed. 4. Diarrhea. Patient only had 1 episode per patient. Resolved. Stool for C. difficile negative. Continue to monitor. 5. Type 2 diabetes. Continue insulin sliding scale. Continue to monitor Accu- Cheks. 6. Hyperlipidemia. Patient takes Crestor at home. Placed on Lipitor here. 7. GI/DVT prophylaxis. Pepcid/Lovenox. 8. Patient is a full code. Case was discussed in detail with the patient regarding current diagnosis and treatment plan. All questions answered.
--- NOTE | 2018-11-08 14:33 | CP.PCM.PN ---
Subjective - Date & Time of Evaluation Date of Evaluation: 11/08/18 Time of Evaluation: 08:10 - Subjective Subjective: Abdominal pain is getting better, no dysuria currently, no fevers. Objective - Vital Signs/Intake and Output Vital Signs (last 24 hours): Temp Pulse Resp BP Pulse Ox 98 F 76 19 130/65 97 11/07/18 08:33 11/07/18 08:33 11/07/18 08:33 11/07/18 08:33 11/07/18 08:33 - Medications Medications: Current Medications Acetaminophen (Tylenol 325mg Tab) 650 mg PO Q6H PRN PRN Reason: Pain, moderate (4-7) Albuterol/Ipratropium (Duoneb 3 Mg/0.5 Mg (3 Ml) Ud) 3 ml IH Q6H PRN PRN Reason: Shortness of Breath Atorvastatin Calcium (Lipitor) 80 mg PO DIN SADA Dextrose (Dextrose 50% Inj) 0 ml IV STAT PRN; Protocol PRN Reason: Hypoglycemia Protocol Diphenhydramine HCl (Benadryl) 25 mg PO Q6H PRN PRN Reason: Allergy symptoms Enoxaparin Sodium (Lovenox) 40 mg SC DAILY SADA; Protocol Last Admin: 11/07/18 11:12 Dose: 40 mg Famotidine (Pepcid) 20 mg PO BID SADA Last Admin: 11/07/18 11:13 Dose: 20 mg Dextrose (Dextrose 5% In Water 1000 Ml) 1,000 mls @ 0 mls/hr IV .Q0M PRN; Protocol PRN Reason: Hypoglycemia Protocol Metronidazole (Flagyl) 500 mg in 100 mls @ 100 mls/hr IVPB Q8 SADA; Protocol Last Admin: 11/07/18 06:06 Dose: 100 mls/hr Vancomycin HCl (Vancomycin 1gm) 1 gm in 250 mls @ 167 mls/hr IVPB Q12H SADA; Protocol Last Admin: 11/07/18 11:09 Dose: 167 mls/hr Aztreonam (Azactam 1 Gm) 100 mls @ 100 mls/hr IVPB Q8 SADA; Protocol Stop: 11/14/18 14:01 Insulin Human Lispro (Humalog Med) 0 units SC ACHS SADA; Protocol Last Admin: 11/07/18 11:47 Dose: 3 units - Labs Labs: 11/07/18 06:45 11/07/18 06:45 PT 11.2 SECONDS (9.4-12.5) 11/06/18 17:32 INR 1.01 11/06/18 17:32 APTT 35.8 Seconds (26.9-38.3) 11/06/18 17:32 - Constitutional Appears: No Acute Distress, Chronically Ill - Head Exam Head Exam: NORMAL INSPECTION - Neck Exam Neck Exam: absent: Meningismus - Respiratory Exam Respiratory Exam: Decreased Breath Sounds - Cardiovascular Exam Cardiovascular Exam: +S1, +S2 - GI/Abdominal Exam GI & Abdominal Exam: Soft. absent: Tenderness Assessment and Plan - Assessment and Plan (Free Text) Plan: Assessment consider urinary tract infection DM HTN hypertriglyceridemia Plan continue Vancomycin, Azactam and will follow up final urine cx results; blood cx are negative reviewed CT C/A/P which did not show specific acute pathology will continue to monitor clinically
[2018-11-08] MEDS: DiphenhydrAMINE 12.5 mg/5 ml LIQ UD (5 ml) PO PRN (23:18)
[2018-11-09] MEDS: Aztreonam 1 Gm in NS 100mL 100 ML IVPB SCH ×2 (06:20→14:11)
[2018-11-09 07:10] LABS: BASO # 0.05 K/mm3 (0.0-2.0); BASO % 0.7 % (0.0-3.0); EOS # 0.2 (0.0-0.7); EOS % 3.5 % (1.5-5.0); HEMOGLOBIN 11.7 g/dL (12.0-16.0); LYMPH # 2.3 (1.2-3.4); LYMPH % 32.6 % (22.0-35.0); MEAN CELL VOLUME 65.4 fl (80.0-105.0); MEAN CORPUSCULAR HEMOGLOBIN 20.7 pg (25.0-35.0); MEAN CORPUSCULAR HGB CONC 31.6 g/dl (31.0-37.0); MEAN PLATELET VOLUME 9.5 fl (7.0-11.0); MONO # 0.5 (0.1-0.6); MONO % 6.5 % (1.0-6.0); RBC 5.66 10^6/uL (3.5-6.1); RED CELL DISTRIBUTION WIDTH 15.5 % (11.5-14.5); WHITE BLOOD COUNT 6.9 10^3/uL (4.5-11.0)
[2018-11-09 07:34] LABS: BLOOD UREA NITROGEN 9 mg/dL (7-21); GFR NON-AFRICAN AMERICAN > 60
[2018-11-09 07:35] LABS: ALB/GLOB RATIO 1.1 (1.1-1.8); ALBUMIN 3.8 g/dL (3.0-4.8); ALT/SGPT 24 U/L (7-56); AST/SGOT 30 U/L (14-36); CALCIUM 8.5 mg/dL (8.4-10.5)
[2018-11-09] MEDS: Insulin Lispro (humaLOG) MEDIUM Coverage SC SCH ×3 (08:28→16:41)
[2018-11-09 08:33] VITALS: RESP 18
[2018-11-09] MEDS: Enoxaparin 40 mg Syringe SC SCH (10:03)
[2018-11-09] MEDS: Vancomycin 1gm in NS 250ml 1 GM/250 ML BAG IVPB SCH (10:21)
--- NOTE | 2018-11-09 12:57 | CP.PCM.PN ---
Subjective - Date & Time of Evaluation Date of Evaluation: 11/09/18 Time of Evaluation: 10:45 - Subjective Subjective: Patient is feeling better, no fevers overnight, abdominal discomfort is much better, no nausea, no diarrhea. Objective - Vital Signs/Intake and Output Vital Signs (last 24 hours): Temp Pulse Resp BP Pulse Ox 98 F 70 18 137/74 97 11/08/18 06:00 11/08/18 06:00 11/08/18 06:00 11/08/18 06:00 11/08/18 06:00 Intake and Output: 11/08/18 11/08/18 06:59 18:59 Intake Total 660 Balance 660 - Medications Medications: Current Medications Acetaminophen (Tylenol 325mg Tab) 650 mg PO Q6H PRN PRN Reason: Pain, moderate (4-7) Albuterol/Ipratropium (Duoneb 3 Mg/0.5 Mg (3 Ml) Ud) 3 ml IH Q6H PRN PRN Reason: Shortness of Breath Atorvastatin Calcium (Lipitor) 80 mg PO DIN SADA Last Admin: 11/07/18 17:19 Dose: Not Given Dextrose (Dextrose 50% Inj) 0 ml IV STAT PRN; Protocol PRN Reason: Hypoglycemia Protocol Diphenhydramine HCl (Benadryl) 25 mg PO Q6H PRN PRN Reason: Allergy symptoms Last Admin: 11/07/18 23:55 Dose: 25 mg Enoxaparin Sodium (Lovenox) 40 mg SC DAILY SADA; Protocol Last Admin: 11/08/18 10:52 Dose: 40 mg Famotidine (Pepcid) 20 mg PO BID [facility] Last Admin: 11/08/18 10:52 Dose: 20 mg Dextrose (Dextrose 5% In Water 1000 Ml) 1,000 mls @ 0 mls/hr IV .Q0M PRN; Protocol PRN Reason: Hypoglycemia Protocol Vancomycin HCl (Vancomycin 1gm) 1 gm in 250 mls @ 167 mls/hr IVPB Q12H SADA; Protocol Last Admin: 11/08/18 10:53 Dose: 167 mls/hr Aztreonam (Azactam 1 Gm) 100 mls @ 100 mls/hr IVPB Q8 SADA; Protocol Stop: 11/14/18 14:01 Last Admin: 11/08/18 14:02 Dose: 100 mls/hr Insulin Human Lispro (Humalog Med) 0 units SC ACHS [facility]; Protocol Last Admin: 11/08/18 11:18 Dose: 5 units - Labs Labs: 11/08/18 06:30 11/08/18 06:30 PT 11.2 SECONDS (9.4-12.5) 11/06/18 17:32 INR 1.01 11/06/18 17:32 APTT 35.8 Seconds (26.9-38.3) 11/06/18 17:32 - Constitutional Appears: Chronically Ill - Head Exam Head Exam: NORMAL INSPECTION - ENT Exam ENT Exam: Mucous Membranes Moist - Neck Exam Neck Exam: absent: Lymphadenopathy, Meningismus - Respiratory Exam Respiratory Exam: Decreased Breath Sounds - Cardiovascular Exam Cardiovascular Exam: +S1, +S2 - GI/Abdominal Exam GI & Abdominal Exam: Soft. absent: Tenderness Assessment and Plan - Assessment and Plan (Free Text) Plan: Assessment consider urinary tract infection, showing coagulase negative staph (lab cannot identify, can be Staph saprophyticus) DM HTN hypertriglyceridemia Plan on Vancomycin, Azactam day 3 and has had 2 days of PO Ciprofloxacin as an outpatient; we can switch to either Doxycycline or Nitrofurantoin for another 3- 5 days with outpatient follow up with PMD; blood cx are negative reviewed CT C/A/P which did not show specific acute pathology as per patient, she will follow up with Dr. Decker discussed with Dr. Saeed Cruz
[2018-11-09 14:10] VITALS: BP 142/71; PULSE 91; TEMP 98.2; O2SAT 96
--- NOTE | 2018-11-09 17:54 | CP.PCM.DIS ---
Provider - Provider Date of Admission: 11/08/18 17:32 Attending physician: Deanna Cruz DO Primary care physician: Alexsander Cowart MD Consults: 11/06/18 23:34 Infectious Disease Consult Routine Comment: Consulting Provider: Hubert Joiner Consulting Physician: Hubert Joiner Reason for Consult: UTI, failed outpatient tx w/ Cipro, diarrhea Time Spent in preparation of Discharge (in minutes): 40 Diagnosis - Discharge Diagnosis (1) UTI (urinary tract infection) Status: Acute Priority: High (2) Diarrhea Status: Acute Priority: High (3) SOB (shortness of breath) Status: Acute Priority: High (4) Hip pain Status: Acute Priority: High (5) Diabetes Status: Chronic Priority: High (6) HLD (hyperlipidemia) Status: Chronic Priority: High Hospital Course - Lab Results Lab Results: Micro Results 11/07/18 07:40 Stool Stool Culture - Final NO SALMONELLA, SHIGELLA OR CAMPYLOBACTER ISOLATED. 11/07/18 07:40 Stool Ova and Parasite Concentrate Exam - Final 11/06/18 20:34 Urine Random Urine Culture - Final Coagulase Neg Staphylococcus 11/06/18 23:40 Blood Blood Culture - Preliminary NO GROWTH AFTER 48 HOURS 11/06/18 23:20 Blood Blood Culture - Preliminary NO GROWTH AFTER 48 HOURS 11/07/18 07:40 Stool C. difficile Antigen & Toxins A,B - Final Most Recent Lab Values WBC 6.9 10^3/uL (4.5-11.0) 11/09/18 06:20 RBC 5.66 10^6/uL (3.5-6.1) 11/09/18 06:20 Hgb 11.7 g/dL (12.0-16.0) L 11/09/18 06:20 Hct 37.0 % (36.0-48.0) 11/09/18 06:20 MCV 65.4 fl (80.0-105.0) L 11/09/18 06:20 MCH 20.7 pg (25.0-35.0) L 11/09/18 06:20 MCHC 31.6 g/dl (31.0-37.0) 11/09/18 06:20 RDW 15.5 % (11.5-14.5) H 11/09/18 06:20 Plt Count 345 10^3/uL (120.0-450.0) 11/09/18 06:20 MPV 9.5 fl (7.0-11.0) 11/09/18 06:20 Neut % (Auto) 56.7 % (50.0-68.0) 11/09/18 06:20 Lymph % (Auto) 32.6 % (22.0-35.0) 11/09/18 06:20 Lucas % (Auto) 6.5 % (1.0-6.0) H 11/09/18 06:20 Eos % (Auto) 3.5 % (1.5-5.0) 11/09/18 06:20 Baso % (Auto) 0.7 % (0.0-3.0) 11/09/18 06:20 Lymph # (Auto) 2.3 (1.2-3.4) 11/09/18 06:20 Lucas # (Auto) 0.5 (0.1-0.6) 11/09/18 06:20 Eos # (Auto) 0.2 (0.0-0.7) 11/09/18 06:20 Baso # (Auto) 0.05 K/mm3 (0.0-2.0) 11/09/18 06:20 Absolute Neuts (auto) 3.92 (1.4-6.5) 11/09/18 06:20 PT 11.2 SECONDS (9.4-12.5) 11/06/18 17:32 INR 1.01 11/06/18 17:32 APTT 35.8 Seconds (26.9-38.3) 11/06/18 17:32 D-Dimer, Quantitative 324 ng/mlDDU (0-243) H 11/06/18 17:32 Sodium 139 mmol/L (132-148) 11/09/18 06:20 Potassium 3.9 mmol/L (3.6-5.0) 11/09/18 06:20 Chloride 108 mmol/L (98-107) H 11/09/18 06:20 Carbon Dioxide 25 mmol/L (21-33) 11/09/18 06:20 Anion Gap 10 (10-20) 11/09/18 06:20 BUN 9 mg/dL (7-21) 11/09/18 06:20 Creatinine 0.4 mg/dl (0.7-1.2) L 11/09/18 06:20 Est GFR ( Amer) > 60 11/09/18 06:20 Est GFR (Non-Af Amer) > 60 11/09/18 06:20 POC Glucose (mg/dL) 150 mg/dL (65-110) H 11/09/18 16:06 Random Glucose 165 mg/dL (70-110) H 11/09/18 06:20 Calcium 8.5 mg/dL (8.4-10.5) 11/09/18 06:20 Total Bilirubin 0.3 mg/dL (0.2-1.3) 11/09/18 06:20 AST 30 U/L (14-36) 11/09/18 06:20 ALT 24 U/L (7-56) 11/09/18 06:20 Alkaline Phosphatase 71 U/L (38-126) 11/09/18 06:20 Lactate Dehydrogenase 333 U/L (333-699) 11/07/18 16:55 Total Creatine Kinase 30 U/L (35-230) L 11/07/18 16:55 Troponin I < 0.01 ng/mL 11/07/18 16:55 NT-Pro-B Natriuret Pep 40.0 pg/mL (0-450) 11/06/18 17:32 Total Protein 7.3 g/dL (5.8-8.3) 11/09/18 06:20 Albumin 3.8 g/dL (3.0-4.8) 11/09/18 06:20 Globulin 3.5 gm/dL 11/09/18 06:20 Albumin/Globulin Ratio 1.1 (1.1-1.8) 11/09/18 06:20 Lipase 225 U/L (23-300) 11/06/18 17:32 Procalcitonin 0.15 NG/ML (0.19-0.49) L 11/06/18 17:32 Urine Color Straw (YELLOW) 11/06/18 20:34 Urine Appearance Clear (CLEAR) 11/06/18 20:34 Urine pH 6.5 (4.7-8.0) 11/06/18 20:34 Ur Specific [place] <= 1.005 (1.005-1.035) 11/06/18 20:34 Urine Protein Negative mg/dL (<30 mg/dL) 11/06/18 20:34 Urine Glucose (UA) Negative mg/dL (NEGATIVE) 11/06/18 20:34 Urine Ketones Negative mg/dL (NEGATIVE) 11/06/18 20:34 Urine Blood Trace-lysed (NEGATIVE) H 11/06/18 20:34 Urine Nitrate Negative (NEGATIVE) 11/06/18 20:34 Urine Bilirubin Negative (NEGATIVE) 11/06/18 20:34 Urine Urobilinogen 0.2 E.U./dL (<1 E.U./dL) 11/06/18 20:34 Ur Leukocyte Esterase Small [place]/uL (NEGATIVE) H 11/06/18 20:34 Urine RBC 5 - 10 /hpf (0-2) H 11/06/18 20:34 Urine WBC 10 - 15 /hpf (0-6) H 11/06/18 20:34 Ur Epithelial Cells 6 - 8 /hpf (0-5) H 11/06/18 20:34 - Hospital Course Hospital Course: Hospitalization Pt is a 73 yo female with PMH DM2, HLD, and hypertriglyceridemia, who presents to the ED complaining of LLQ pain and SOB associated with sharp chest pain that has been present for the past day. States that she was prescribed Cipro by her PMD for treatment of UTI, and also Diflucan x1 for treatment of yeast infection. Pt started taking both medications for 1 day, and then started to have the LLQ pain. Pt states she got concerned about her symptoms, stopped taking Cipro on her own, and was sent to the ED by her PMD for further evaluation. Pt states the SOB also started at around the same time, and stated that it was difficult to take a deep breath in and that the chest pain was localized to the mid-sternum and also in the area of the ribs with radiation to the back. Pt described it at being sharp, localized to LLQ with associated radiation of pain that shot down to L hip and rest of L leg. Pt was treated for UTI with vanc, azactam and flagyl. Pt diarrhea was found to be negative for C diff. SOB was evaluated with LE doppler. Hip pain was evaluated with xrays which were negative for fracture or dislocation. Discharge Please follow up with primary care physician Dr Reyna in the next 3-5 days. Hold off on taking Crestor until you see Dr Reyna. Given a prescription for Macrobid for the next 5 days for urinary tract infection. Repeat urinalysis with your primary care physician after completion of antibiotics. - Date & Time of H&P Date of H&P: 11/09/18 Time of H&P: 07:45 Discharge Exam - Head Exam Head Exam: NORMAL INSPECTION - Eye Exam Eye Exam: EOMI - ENT Exam ENT Exam: Mucous Membranes Moist - Respiratory Exam Respiratory Exam: NORMAL BREATHING PATTERN. absent: Accessory Muscle Use, Respiratory Distress - Cardiovascular Exam Cardiovascular Exam: RRR, +S1, +S2. absent: Diastolic murmur, Systolic Murmur - GI/Abdominal Exam GI & Abdominal Exam: Normal Bowel Sounds, Soft, Unremarkable. absent: Tenderness - Extremities Exam Extremities exam: full ROM, pedal pulses present - Neurological Exam Neurological exam: Alert, Oriented x3 - Psychiatric Exam Psychiatric exam: Normal Affect, Normal Mood - Skin Skin Exam: Dry, Normal Color, Warm Discharge Plan - Discharge Medications Prescriptions: Nitrofurantoin Macrocrystals [Macrobid] 100 mg PO BID #10 cap - Follow Up Plan Condition: STABLE Disposition: HOME/ ROUTINE Instructions: Urinary Tract Infections in Adults, Pneumonitis (DC) Additional Instructions: 1. Please follow up with your primary care physician Dr Reyna in the next 3-5 days 2. Please hold off on taking your Crestor until you see Dr Reyna 3. You are being given a prescription for Macrobid for the next 5 days for your urinary tract infection. You will need repeat urinalysis with your primary care physician after you complete your antibiotics. 4. If your symptoms return or worsen, please go to the nearest emergency department Referrals: Atilio Cruz MD [Staff Provider] - Alexsander Cowart MD [Primary Care Provider] - Hubert Joiner MD [Staff Provider] -
== END 2018-11-09 17:59 | disposition home or self-care (01) | DRG 690 ==
LOC: ED 12:47 → ERH 22:33 → 5RNO 11-07 00:40 → OBSVTOIN 11-08 17:32
PROVIDERS: ADMIT Hospitalist; ATTEND Hospitalist
DX: N39.0 Urinary tract infection, site not specified (principal); E11.9 Type 2 diabetes mellitus without complications; E78.1 Pure hyperglyceridemia; I10 Essential (primary) hypertension; E78.00 Pure hypercholesterolemia, unspecified; K52.9 Noninfective gastroenteritis and colitis, unspecified; K44.9 Diaphragmatic hernia without obstruction or gangrene; Z88.0 Allergy status to penicillin

== ENCOUNTER 2019-02-22 10:03 | Outpatient (CLI) | payer SELFPAY | END 2019-02-22 10:04 | disposition home or self-care (01) | LOC: LAB 10:03 ==